=== PATIENT | female | born 1940 | race Caucasian/White ===

== ENCOUNTER → 2023-07-30 10:27 | Outpatient (REF) | payer MEDICARE, BC, SELFPAY | LOC: HWRAD 10:27 | PROVIDERS: ATTENDING PHYSICIAN Family Medicine | DX: M85.80 Other specified disorders of bone density and structure, unspecified site (principal); Z12.31 Encounter for screening mammogram for malignant neoplasm of breast; M85.89 Other specified disorders of bone density and structure, multiple sites | CPT/HCPCS: 77063; 77067; 77080 ==

== ENCOUNTER → 2023-08-06 10:32 | Outpatient (REF) | payer MEDICARE, BC, SELFPAY | LOC: WDC 10:32 | PROVIDERS: ATTENDING PHYSICIAN Family Medicine | DX: R92.8 Other abnormal and inconclusive findings on diagnostic imaging of breast (principal) | CPT/HCPCS: 76642 ==

== ENCOUNTER → 2023-09-24 09:02 | Outpatient (REF) | payer MEDICARE, BC, SELFPAY | LOC: RAD 09:02 | PROVIDERS: ATTENDING PHYSICIAN Family Medicine | DX: Z86.73 Personal history of transient ischemic attack (TIA), and cerebral infarction without residual deficits (principal); G45.8 Other transient cerebral ischemic attacks and related syndromes | CPT/HCPCS: 93880 ==

== ENCOUNTER → 2023-12-23 12:34 | Outpatient (REF) | payer MEDICARE, BC, SELFPAY ==
[2023-12-23 16:30] LABS: % Basophils 1.1 % (0-2); % Eosinophils 2.8 % (0-6); % Immature Granulocytes 0.3 % (0-0.5); % Lymphocytes 36.1 % (20.5-51.1); % Monocytes 7.4 % (1.7-9.3); % Neutrophils 52.3 % (42.2-75.2); Absolute Basophils 0.1 10^3/uL (0-0.2); Absolute Eosinophils 0.2 10^3/uL (0-0.7); Absolute Lymphocytes 2.5 10^3/uL (1.2-3.4); Absolute Monocytes 0.5 10^3/uL (0.1-0.6); Absolute Neutrophils 3.7 10^3/uL (1.4-6.5); Hematocrit 36.1 % (37.0-47.0); Hemoglobin 12.6 g/dL (12.0-16.0); Mean Corp Hgb Conc. 34.9 g/dL (33.0-37.0); Mean Corpuscular Hgb 34.1 pg (27.0-31.0); Mean Corpuscular Volume 97.6 fL (81.0-99.0); Mean Platelet Volume 10.4 fL (7.4-10.4); Nucleated Red Blood Cells % 0 %; Platelet Count 208 10^3/uL (130-400); Red Cell Dist. Width 13.2 % (11.5-14.5)
[2023-12-23 16:40] LABS: ALT (SGPT) 19 U/L (0-35); AST (SGOT) 29 U/L (14-36); Albumin 4.1 g/dl (3.5-5.0); Alkaline Phosphatase 86 U/L (38-126); Blood Urea Nitrogen 23 mg/dl (7-17); Carbon Dioxide 28 mmol/L (22-30); Chloride 104 mmol/L (98-107); Glucose 95 mg/dl (70-99); Potassium 3.9 mmol/L (3.5-5.1); Sodium 142 mmol/L (135-145); Total Bilirubin 0.6 mg/dl (0.2-1.3); Total Protein 6.7 g/dl (6.3-8.2); eGFR > 60.00
[2023-12-23 16:41] LABS: D-Dimer 1.27 ug/mlFEU (0.00-0.50)
[2023-12-23 16:44] LABS: C-Reactive Protein < 5.00 mg/L (0.0-10.00)
[2023-12-23 16:53] LABS: NT-proBNP 396 pg/ml
[2023-12-23 16:54] LABS: Erythrocyte Sed Rate 19 mm/hour (0-20)
[2023-12-23 17:15] LABS: TSH Reflex To Free T4 0.16 uIU/ml (0.47-4.68)
[2023-12-23 17:44] LABS: Free T4 1.16 ng/dl (0.78-2.19)
[2023-12-24 10:51] LABS: Free T3 3.22 pg/ml (2.77-5.27)
== END ==
LOC: HWRAD 12:34
PROVIDERS: ATTENDING PHYSICIAN Family Medicine
DX: R06.02 Shortness of breath (principal); I10 Essential (primary) hypertension
CPT/HCPCS: 36415; 71046; 80053; 83880; 84439; 84443; 84481; 85025; 85379; 85652; 86140

== ENCOUNTER 2023-12-23 21:20 | Observation (INO) | payer MEDICARE, BC, SELFPAY ==
[2023-12-23] VITALS (7 sets, daily range): BP systolic 116–183; BP diastolic 58–92; BMI 25.7; BMI 28.6
--- NOTE | 2023-12-23 18:31 | ED.GENMED ---
History of Present Illness
General
Chief Complaint: Breathing Problem
Source: patient
Exam Limitations: none
Time Seen by Provider: 12/23/23 18:17
History of Present Illness
History of Present Illness:
See MDM
Past History
Past History
ED Past Medical History: Asthma and HTN
ED Past Surgical History: Cholecystectomy and Gynecological
Social History
Living: alone
Phy Exam
Physical Exam
Physical Exam:
See MDM
Scores
Heart Failure Risk
Heart Failure Risk Score: Not Applicable
Course
Orders/Labs/Results
Orders:
Orders
12/23/23 Dinner
Regular
At Your Request: Full Participation
Does patient need a safe tray?: No
12/23/23 17:44
Electrocardiogram (*1) Urgent
Reason for Study: Shortness of Breath
EKG- Treatment ONCE
12/23/23 18:28
Complete Blood Count/With Diff Urgent
Comprehensive Metabolic Panel Urgent
PTT Urgent
Prothrombin Time Urgent
Troponin I Urgent
12/23/23 19:02
CT Chest Pe Study Urgent
Comment:
Reason For Exam: SOB and Chest pain
12/23/23 20:40
Admit/Transfer Patient As Directed
Co-Sign Provider:
Level of Care: Observation services
Assign to:: Telemetry
Physician / Group: mariann
Diagnosis: stable angina
Reason for Telemetry: Arrhythmia
Date to Stop Telemetry: 12/26/23
Time to Stop Telemetry: 11:00
PRN Pain Medication Management As Directed
May give lesser potent ordered pain med per pt: Yes
preference::
Protocol:: Medication orders for pain may be administered in a
manner that supports deferring to patient preference
when the pt is:
- Requesting an ordered lesser potent pain medication.
Least to most potent pain medications are defined
as: acetaminophen < NSAID < tramadol < opioids
(morphine, oxycodone, hydromorphone).
- Requesting a lesser dose of the same medication IF
ORDERED.
- Requesting a less intrusive route of administration
if both routes are prescribed by the provider (PO <
IV).
12/23/23 20:41
Code Status As Directed
Resuscitation Status: Do not resuscitate
Reached after discussion with pt or family/Healthcare POA: Yes
DNR Bracelet Application ONCE
12/23/23 21:42
Activity As Directed
Activity Level: As Tolerated
Vital Signs As Directed
Frequency: Per unit guidelines
DX Deep Vein Thrombosis Video Routine
12/23/23 22:00
Flush (0.9% Sodium Chloride) [Flush (Nss)] See Dose Instructions IV PER PROTOCOL
12/24/23 07:54
Complete Blood Count/With Diff IN AM
Comprehensive Metabolic Panel IN AM
12/24/23 08:00
Calcium Carbonate [Oscal Tashi 500] 500 mg PO DAILY
Celecoxib [Celebrex] 200 mg PO DAILY
Heparin 5,000 units SC Q12
Hydrochlorothiazide [Oretic] 25 mg PO DAILY
Irbesartan [Avapro] 300 mg PO DAILY
Potassium Chloride [KCl] 10 meq PO DAILY
12/25/23 08:00
Estradiol Vaginal [Estrace 0.01% Vaginal Cream] See Dose Instructions VAG TuSa@0800
12/26/23 11:00
DC Protocol for Telemetry ONCE
Abnormal Lab Results
12/23/23
18:28
RBC 3.80 L 10^6/uL
(4.20-5.40)
Hct 35.8 L %
(37.0-47.0)
MCH 33.2 H pg
(27.0-31.0)
BUN 25 H mg/dl
(7-17)
Glucose 113 H mg/dl
(70-99)
12/23/23 18:28
12/23/23 18:28
Vital Signs
Initial and Last Documented VS:
Initial Vital Signs
Temp Pulse Resp BP Pulse Ox
97.9 F 62 20 116/92 99
12/23/23 17:47 12/23/23 17:47 12/23/23 17:47 12/23/23 17:47 12/23/23 17:47
Last Documented Vital Signs
Temp Pulse Resp BP Pulse Ox
98.0 F 63 18 146/77 96
12/24/23 14:54 12/24/23 14:54 12/24/23 14:54 12/24/23 14:54 12/24/23 14:54
MDM/Problems Addressed
Differential Diagnosis Includes:
HPI and MDM Narrative:
83-year-old female presenting for evaluation of exertional dyspnea over the past several weeks. Family at bedside acknowledges that she becomes very short of breath with minimal exertion. At rest, patient states all symptoms resolved. She saw her
PCP and outpatient blood work was performed showing a normal BNP but the D-dimer is elevated. She was sent to the emergency department for evaluation of possible PE
After talking to the patient and hearing the story, her symptoms are more concerning for acute coronary syndrome. Although her D-dimer is elevated, will decide CT or not based on troponin. Outpatient chest x-ray clear
Physical exam
General: Well appearing and non-toxic
HEENT: protecting airway
Neck: appears supple
CV: No evidence of cyanosis. Regular rate and rhythm
Resp: No accessory muscle use. Lungs clear
Abd: Non-distended
Extremities: No deformities. No unilateral leg edema or tenderness
Neuro: alert
Psych: Normal affect
Skin: Intact
Problems Addressed including Acute and Chronic Conditions affecting care:
1. Exertional dyspnea
Acuity: acute
Prognosis: unstable
Details: Screening EKG negative but symptoms are concerning. Will obtain troponin
Updates
Troponin negative. CT PE was performed but is also negative. Given her history of significant exertional dyspnea with minimal exertion, will admit for further workup
Differential Diagnosis (but not limited to): Pulmonary embolism, acute coronary syndrome
Testing considered: CT PE but will obtain troponin first
Drug therapy (if applicable): OTC meds, please see d/c instruction regarding Rx drugs
Amount and/or Complexity of Data Reviewed
Clinical info obtained from: Patient
External data reviewed: Outpatient BNP and CXR normal
Labs I independently reviewed (but not limited to): [Troponin normal
Radiology: The CT scan was personally and independently reviewed. In addition, official CT report reviewed.
Pulse Ox: not hypoxic
EKG independently reviewed: Sinus rhythm, normal axis, no STEMI
Child Care Group Leader: Sinus rhythm
Critical Care: N/A
Risk of Complication:
Social Determinants of health: Good social support
Discussed with other providers: Hospitalist
Escalation of Care includes Admit/Obs: Given the significant shortness of breath with exertion, will admit for further testing
Occasional wrong word or 'sound a like' substitutions may have occurred due to the inherent limitations of voice recognition software. Read the chart carefully and recognize, using context, where substitutions have occurred.
*Critical Care Note
Total Time (30-74mins, 75-104mins- exclusive of procedures): Not Applicable
ED Attending Note
-
Portions of this chart may have been created with voice recognition software.� Occasional wrong word or��sound alike� substitutions may have occurred due to the inherent limitations of voice recognition software.
Discharge Plan
Departure
Patient Disposition: Admit
Date of Disposition: 12/23/23
Time of Disposition: 20:20
Admit to: Telemetry
Presentation/result/management discussed w/ accepting MD/DO: Hospitalist
Discharge Problem:
Exertional dyspnea
Interventions
Interventions:
*Risk Screen - Suicide Last Done: 12/23/23 17:47
*General Assessment Last Done: 12/23/23 18:30
*Neglect/Abuse Screening Last Done: 12/23/23 18:30
ED- Fall Risk Assessment Last Done: 12/23/23 18:30
*ED COVID-19 Vaccine History Last Done: 12/23/23 18:30
*Nursing Disposition Last Done: 12/23/23 21:30
ED- Cardiac Assessment Last Done: 12/23/23 18:30
ED- Pulmonary Assessment Last Done: 12/23/23 18:30
Discharge Date and Time
Discharge Date/Time: 12/23/23 21:45
[2023-12-23 18:37] LABS: % Basophils 1.4 % (0-2); % Eosinophils 3.8 % (0-6); % Immature Granulocytes 0.3 % (0-0.5); % Lymphocytes 37.4 % (20.5-51.1); % Monocytes 8.9 % (1.7-9.3); % Neutrophils 48.2 % (42.2-75.2); Absolute Basophils 0.1 10^3/uL (0-0.2); Absolute Eosinophils 0.3 10^3/uL (0-0.7); Absolute Lymphocytes 2.7 10^3/uL (1.2-3.4); Absolute Monocytes 0.6 10^3/uL (0.1-0.6); Absolute Neutrophils 3.4 10^3/uL (1.4-6.5); Hematocrit 35.8 % (37.0-47.0); Hemoglobin 12.6 g/dL (12.0-16.0); Mean Corp Hgb Conc. 35.2 g/dL (33.0-37.0); Mean Corpuscular Hgb 33.2 pg (27.0-31.0); Mean Corpuscular Volume 94.2 fL (81.0-99.0); Mean Platelet Volume 9.4 fL (7.4-10.4); Nucleated Red Blood Cells % 0 %; Platelet Count 214 10^3/uL (130-400); Red Cell Dist. Width 13.3 % (11.5-14.5); White Blood Cell Count 7.1 10^3/uL (4.8-10.8)
[2023-12-23 18:45] LABS: INR 1.02; PT 13.4 Sec (11.4-14.6)
[2023-12-23 18:46] LABS: APTT 31.3 Sec (23.4-35.0)
[2023-12-23 18:48] LABS: ALT (SGPT) 19 U/L (0-35); AST (SGOT) 29 U/L (14-36); Albumin 4.2 g/dl (3.5-5.0); Alkaline Phosphatase 83 U/L (38-126); Blood Urea Nitrogen 25 mg/dl (7-17); Calcium 9.9 mg/dl (8.4-10.2); Carbon Dioxide 26 mmol/L (22-30); Chloride 105 mmol/L (98-107); Estimated Creatinine Clearance 61 ml/min; Glucose 113 mg/dl (70-99); Potassium 3.6 mmol/L (3.5-5.1); Sodium 142 mmol/L (135-145); Total Bilirubin 0.5 mg/dl (0.2-1.3); Total Protein 6.9 g/dl (6.3-8.2); eGFR > 60.00
[2023-12-23 18:59] LABS: Troponin I < 0.012 ng/ml
--- NOTE | 2023-12-23 20:44 | HPS.HSE ---
Family Physician
-
Family Physician: Tobi Sandhu
Chief Complaint
-
shortness of breath
History of Present Illness
83-year-old female past medical history of hypertension, asymptomatic bradycardia psoriasis, recurrent UTI, hyperlipidemia presenting with shortness of breath with exertion over the past several weeks. Shortness of breath only occurs with exertion
and resolves with rest. She also feels a vague feeling in her chest that feels better when she rubs her chest while she is exerting herself. She denies any radiation of the discomfort. She denies any sweating or nausea or vomiting. She denies
any dizziness. She denies any cough or fevers or chills. She denies any lower extremity edema. She may have gained a few pounds but does not think this is water weight.
She denies smoking. She drinks alcohol up to a few times a week.
She is adopted so she does not know her family history.
Medical History
Past Medical History
Past Medical History: Reports Other (hypertension, asymptomatic bradycardia psoriasis, recurrent UTI, hyperlipidemia)
Past Surgical History: Reports None
Social History
Tobacco: Non-smoker
Alcohol: None
Drug: None
Family History
Family History: Not pertinent
Allergies / Home Medications
Allergies reflects when Allergies were last updated in [employer].
Home Medications with original date entered in [employer]
Allergy/Medication List:
Allergies
Allergy/AdvReac Type Severity Reaction Status Date / Time
hydromorphone [From Dilaudid] Allergy Nausea / Verified 12/23/23 17:47
Vomiting
meperidine [From Demerol] Allergy Nausea / Verified 12/23/23 17:47
Vomiting
theophylline Allergy Anaphylaxis Verified 12/23/23 17:47
ciprofloxacin AdvReac Mild gi symptoms Verified 12/23/23 17:47
Home Medications
calcium carbonate 600 mg PO DAILY Supplement 03/29/17
celecoxib 200 mg capsule 200 mg PO DAILY arthritis 03/29/17
hydrochlorothiazide 25 mg tablet 25 mg PO DAILY Blood pressure 03/29/17
estradiol 0.01% (0.1 mg/gram) vaginal cream 1 g vaginal TUSA Hormonal agent 07/20/22
irbesartan 300 mg tablet 300 mg PO DAILY Blood pressure 07/20/22
potassium chloride 10 mEq tablet,extended release(part/cryst) 10 meq PO DAILY Supplement 07/20/22
Review of Systems
-
History Source: Patient
A 12 point ROS was completed and negative except as noted: Yes
Constitutional: Reports No Symptoms
EENT: Reports No Symptoms
Respiratory: Reports See HPI
Cardiac: Reports No Symptoms
Abdomen/GI: Reports No Symptoms
: Reports No Symptoms
Musculoskeletal: Reports No Symptoms
Skin: Reports No Symptoms
Neurological: Reports No Symptoms
Endocrine: Reports No Symptoms
Hematologic/Lymphatic: Reports No Symptoms
Psych: Reports No Symptoms
Physical Exam
Vital Signs
Vital Signs
Temp Pulse Resp BP Pulse Ox
97.9 F 74 18 162/58 97
12/23/23 17:47 12/23/23 20:15 12/23/23 20:15 12/23/23 20:00 12/23/23 20:15
Physical Exam
General: Well Developed, Well Nourished and No Apparent Distress
HEENT: NormoCephalic, Moist mucous membranes and Atraumatic
Respiratory: Clear
Cardiac: S1/S2 and Regular Rhythm; No Murmur or Rub
GI: Soft, Non Tender, Non Distended and Normal Bowel Sounds; No Organomegaly
Rectal: Deferred by Provider
Musculoskeletal: No Clubbing, No Cyanosis and No Edema
Skin: No Rash
Neuro: Nonfocal/grossly intact
Laboratory Results
-
12/23/23 18:28
12/23/23 18:28
Laboratory Results
PT 13.4 Sec (11.4-14.6) 12/23/23 18:28
INR 1.02 12/23/23 18:28
APTT 31.3 Sec (23.4-35.0) 12/23/23 18:
Total Bilirubin 0.5 mg/dl (0.2-1.3) 12/23/23 18:
AST 29 U/L (14-36) 12/23/23 18:
ALT 19 U/L (0-35) 12/23/23 18:28
Alkaline Phosphatase 83 U/L (38-126) 12/23/23 18:
Troponin I < 0.012 ng/ml 12/23/23 18:28
Data Reviewed
-
Lab Data: Labs Reviewed by me
Old Records: Reviewed
Impression/Plan
-
IMPRESSION:
PLAN:
# Dyspnea on exertion likely secondary to stable angina
-Outpatient D-dimer elevated
-CT PE shows severe calcific atherosclerotic plaque in the coronary arteries, mild scarring/subsegmental atelectasis, without any acute pulmonary abnormalities
-Troponin negative
-EKG shows normal associated with sinus arrhythmia
-Check echo
-Cardiology consulted
Essential hypertension
-Continue irbesartan
-Continue hydrochlorothiazide
Hx of bradycardia
Psoriasis
History of recurrent UTI
Hyperlipidemia
DNR/DNI
DVT prophylaxis-heparin
Regular diet
--- NOTE | 2023-12-24 01:04 | PTCARENOTE ---
Pt received from ER [email or web address] able to make his needs known.Denies of any chest pain,denies need of oxygen.Pt oriented to room & call pace in reach.Plan of care continued.
[2023-12-24 03:42] VITALS: BP 132/70
[2023-12-24 07:00] VITALS: BP 141/92
[2023-12-24 08:23] LABS: % Basophils 1.8 % (0-2); % Eosinophils 3.7 % (0-6); % Immature Granulocytes 0.4 % (0-0.5); % Lymphocytes 34.8 % (20.5-51.1); % Monocytes 7.6 % (1.7-9.3); % Neutrophils 51.7 % (42.2-75.2); Absolute Basophils 0.1 10^3/uL (0-0.2); Absolute Eosinophils 0.2 10^3/uL (0-0.7); Absolute Monocytes 0.4 10^3/uL (0.1-0.6); Absolute Neutrophils 2.9 10^3/uL (1.4-6.5); Hematocrit 36.3 % (37.0-47.0); Hemoglobin 12.5 g/dL (12.0-16.0); Mean Corp Hgb Conc. 34.4 g/dL (33.0-37.0); Mean Corpuscular Hgb 32.6 pg (27.0-31.0); Mean Corpuscular Volume 94.5 fL (81.0-99.0); Mean Platelet Volume 9.7 fL (7.4-10.4); Nucleated Red Blood Cells % 0 %; Platelet Count 210 10^3/uL (130-400); Red Blood Cell Count 3.84 10^6/uL (4.20-5.40); Red Cell Dist. Width 13.3 % (11.5-14.5); White Blood Cell Count 5.7 10^3/uL (4.8-10.8)
--- NOTE | 2023-12-24 08:31 | CON.CAR ---
Consultation
Consultation Request
Date/Time Consultation Requested: 12/24/23, 7am
Date/Time Consultation Performed: 12/24/23, 730am
Requesting Provider: Anderson
Performing Provider: Aakash
Reason for Consultation: FOSS
Medical History
-
Chief Complaint: FOSS
History of Present Illness:
83 yo female with PMH of HTN, asthma was recently evaluated by PCP for FOSS. Labs were sent as outpatient, and then she was sent to ED due to elevated D dimer for evaluation for PE.
Patient reports 6 weeks of progressive FOSS. There is no chest pain, or edema. There is no orthopnea. No dizziness, syncope. Occasional palps.
Past Medical History
Past Medical History: Asthma and HTN
Past Surgical History: Cholecystectomy (2002) and Gynecological (hysterectomy 1984)
Social History
Tobacco: Non-Smoker
Family History
Family History: Adopted
Allergies / Home Medications
Allergy/AdvReac Type Severity Reaction Status Date / Time
ciprofloxacin Allergy gi symptoms Verified 12/23/23 21:43
hydromorphone [From Dilaudid] Allergy Nausea / Verified 12/23/23 17:47
Vomiting
meperidine [From Demerol] Allergy Nausea / Verified 12/23/23 17:47
Vomiting
theophylline Allergy Anaphylaxis Verified 12/23/23 17:47
�Medication �Instructions �Recorded �Confirmed �Type
calcium carbonate 600 mg PO DAILY Supplement 03/29/17 12/23/23 History
celecoxib 200 mg capsule 200 mg PO DAILY arthritis 03/29/17 12/23/23 History
hydrochlorothiazide 25 mg tablet 25 mg PO DAILY Blood pressure 03/29/17 12/23/23 History
estradiol 0.01% (0.1 mg/gram) 1 g vaginal TUSA Hormonal agent 07/20/22 12/23/23 History
vaginal cream
irbesartan 300 mg tablet 300 mg PO DAILY Blood pressure 07/20/22 12/23/23 History
potassium chloride 10 mEq 10 meq PO DAILY Supplement 07/20/22 12/23/23 History
tablet,extended release(part/cryst)
Review of Systems
-
History Source: Patient
All other systems: Negative unless noted
Respiratory: Trouble Breathing
Cardiac: Palpitations
Physical Exam
Vital Signs
Temp Pulse Resp BP Pulse Ox
98.4 F 81 18 141/92 96
12/24/23 07:00 12/24/23 07:00 12/24/23 07:00 12/24/23 07:00 12/24/23 07:00
Lab Results
12/24/23 07:54
Troponin I < 0.012 ng/ml 12/23/23 18:28
Physical Exam
General: Well Developed and Well Nourished
HEENT: Normocephalic and Anicteric
Respiratory: Non Labored Respirations and Other (mild expiratory wheeze)
Cardiac: S1/S2 (normal), Regular Rhythm, Murmur (none), Peripheral Edema (none) and JVD (none)
Musculoskeletal: No Clubbing, No Cyanosis and No Edema
Skin: Warm and Dry
Neuro: AO x 3
Impression / Plan
-
83 yo female with PMH of HTN, asthma was recently evaluated by PCP for 6 weeks of FOSS. Labs were sent as outpatient, and then she was sent to ED due to elevated D dimer for evaluation for PE. CT was negative for PE.
# FOSS
-sxs and exam do not seem consistent with acute HF
-EKG with no acute changes; TnI <0.012
-could be anginal equivalent, especially with CAC noted on CT scan (see below)
-echo today
-we discussed topic of inpatient vs outpatient nuclear stress test (she already ate breakfast today)
-if echo is normal, she would like to return for outpatient exercise nuclear stress, which is reasonable given subacute presentation
-hospitalist to eval for non-cardiac etiology
# Severe coronary artery calcification on CT
-start ASA 81mg and crestor 10mg daily
-lipids were mildly elevated on outpatient panel (LDL 110)
# HTN
-chronic, stable
-cont HCTZ 25mg daily and irbesartan 300mg daily
# Brief paroxysmal SVT
-on tele
-monitor
Data Reviewed
-
EKG: Tracing Personally Visualized and interpreted (SR, sinus arrhythmia)
Radiology: Report Reviewed by me (CXR: NAD)
CT Scan: Report Reviewed by me (CT PE: no PE, severe coronary calcification noted)
Labs: Labs Reviewed by me
[2023-12-24] MEDS: CELEBREX 200 MG PO (08:58)
[2023-12-24] MEDS: ORETIC 25 MG PO (08:58)
[2023-12-24] MEDS: OSCAL CAL 500 500 MG PO (08:58)
[2023-12-24] MEDS: LOW STRENGTH ASPIRIN 81 MG PO (08:58)
[2023-12-24] MEDS: KCL 10 MEQ PO (08:58)
[2023-12-24 08:59] LABS: ALT (SGPT) 20 U/L (0-35); AST (SGOT) 28 U/L (14-36); Alkaline Phosphatase 81 U/L (38-126); Blood Urea Nitrogen 19 mg/dl (7-17); Calcium 9.7 mg/dl (8.4-10.2); Carbon Dioxide 23 mmol/L (22-30); Chloride 105 mmol/L (98-107); Estimated Creatinine Clearance 58 ml/min; Glucose 116 mg/dl (70-99); Potassium 3.9 mmol/L (3.5-5.1); Sodium 142 mmol/L (135-145); Total Bilirubin 0.9 mg/dl (0.2-1.3); Total Protein 6.6 g/dl (6.3-8.2); eGFR > 60.00
--- NOTE | 2023-12-24 09:57 | W.PN.HOSP.TC ---
Today's Communication/Plan
-
Discharge planning today.
Assessment / Plan
Assessment / Plan
Physical exam:
General: Well Developed, Well Nourished and No Apparent Distress
HEENT: Normocephalic, Atraumatic and Moist Mucous Membranes
Respiratory: Clear to Auscultation; Negative Wheezes, Rales or Rhonchi
Cardiac: Regular Rhythm and S1/S2
GI: Soft, Nontender and Nondistended
Musculoskeletal: No Clubbing, No Cyanosis and No Edema
Neuro: Awake, Alert and Oriented
Psych: Calm
A/P:
# Dyspnea on exertion concerns for secondary to stable angina
CTA negative for PE
Normal troponin
Echocardiogram unremarkable
Cardiology consult appreciated
Discussed with cardiology today and since echo and planning to do stress test as outpatient.
Cardiology cleared her for discharge
Started on aspirin and statins
Essential hypertension
-Continue irbesartan
-Continue hydrochlorothiazide
Hx of bradycardia
Psoriasis
History of recurrent UTI
Hyperlipidemia
DNR/DNI
DVT prophylaxis-heparin
Anticipated Discharge: Today
Subjective/Interval History
-
Date of Service: December 24, 2023
Patient denies chest pain or shortness of breath.
Objective Data
-
Labs:
Laboratory Results
12/24/23
07:54
WBC 5.7
Hgb 12.5
Hct 36.3 L
Plt Count 210
Sodium 142
Potassium 3.9
Chloride 105
Carbon Dioxide 23
BUN 19 H
Creatinine 0.7
Glucose 116 H
Calcium 9.7
Total Bilirubin 0.9
AST 28
ALT 20
Alkaline Phosphatase 81
Vital Signs:
Vital Signs
Temp Pulse Resp BP Pulse Ox
98.4 F 82 18 141/92 96
12/24/23 07:00 12/24/23 08:58 12/24/23 07:00 12/24/23 08:58 12/24/23 07:00
I&O
12/23/23 12/24/23 12/25/23
06:59 06:59 06:59
Intake Total 480 / 480
Balance 480 / 480
[2023-12-24 12:05] VITALS: BP 155/68
[2023-12-24] MEDS: AVAPRO 300 MG PO (12:08)
--- NOTE | 2023-12-24 13:23 | CM ---
Reviewed the chart notes and spoke with the patient at the bedside. The patient is admitted under observational status. The [facility]ARTE letter was provided and explained. The patient had no questions with regards to the letter.
The patient resides alone in a independent condo with elevator access. The patient has a rolling walker, shower chair, and shower rails in the home. The patient has been to [facility] and [facility]. The patient has had [facility]
and [facility] in the past. The patient confirmed her pharmacy of choice is the [facility]. The patient drove self to the hospital and may or may not drive self home. Patient has family in area if she wants them to drive her home.
CM continues to be available to patient/family and is monitoring medical plan for needs at discharge.
Plan: Discharge to home when medically stable. No anticipated needs identified at this time.
--- NOTE | 2023-12-24 14:11 | W.DCSUMMARY ---
Discharge Summary
Discharge Data
Date of Admission: 12/23/23
Date of Discharge: 12/24/23
-
Pending Results: No
Hospital Course
Patient 83 years old female history of hypertension, asthma, presented to the hospital with dyspnea on exertion. Cardiology consulted. Troponin was normal. Patient underwent echocardiogram and unremarkable. Cardiology discussed with patient and
recommended outpatient stress test. Patient lung exam unremarkable and no signs of bronchospasm. Patient feels comfortable with cardiology plan. Cardiology cleared her for discharge today. Otherwise she is hemodynamically stable pulse ox normal
and she is eager to go home today. She will be discharged in stable condition today.
Discharge Plan
-
Patient Disposition: Home (Routine Discharge)
Discharge Diagnosis/Procedures: Shortness of breath. Hypertension. Paroxysmal supraventricular tachycardia
Diet: Low Cholesterol
Activity: As tolerated
Blood Work: Please PCP to order CBC, BMP within 1 week
Referrals:
Emmanuel Finn MD [Active] - in one to two weeks
Tobi Sandhu DO [Family Provider] - in less than 1 week
Prescriptions:
New
aspirin 81 mg Tablet,Chewable
81 mg PO DAILY Qty: 30 0RF
rosuvastatin 20 mg Tablet
20 mg PO QPM 30 Days Qty: 30 0RF
Continued
celecoxib 200 MG capsule
200 mg PO DAILY
hydrochlorothiazide 25 MG tablet
25 mg PO DAILY
calcium carbonate 600 MG tablet
600 mg PO DAILY
Patient Comments:
No meds Tuesdays
estradiol 0.01 % (0.1 mg/gram) cream
1 g vaginal TUSA
irbesartan 300 MG tablet
300 mg PO DAILY
potassium chloride 10 MEQ tablet,ER particles/crystals
10 meq PO DAILY
Discharge Orders:
Discharge Patient (As Directed); Ordered 12/24/23
Ordered By: Chi Armstrong
Discharge Date and Time
Discharge Date/Time: 12/24/23 17:32
Print Language: MOROCC[place]
[2023-12-24 14:54] VITALS: BP 146/77
== END 2023-12-24 17:32 | disposition home or self-care (01) ==
LOC: 4 EAST ACU 21:20
PROVIDERS: ADMITTING PHYSICIAN Hospitalist; ATTENDING PHYSICIAN Hospitalist; EMERGENCY PHYSICIAN Student in an Organized Health Care Education/Training Program; FAMILY PHYSICIAN Family Medicine; OTHER PHYSICIAN Internal Medicine
DX: R06.02 Shortness of breath (principal); I10 Essential (primary) hypertension; J45.909 Unspecified asthma, uncomplicated; I25.118 Atherosclerotic heart disease of native coronary artery with other forms of angina pectoris; E78.5 Hyperlipidemia, unspecified; R79.89 Other specified abnormal findings of blood chemistry; L40.9 Psoriasis, unspecified; I47.19 Other supraventricular tachycardia; I49.8 Other specified cardiac arrhythmias; I70.0 Atherosclerosis of aorta; I47.10 Supraventricular tachycardia, unspecified; K44.9 Diaphragmatic hernia without obstruction or gangrene; J98.11 Atelectasis; M19.012 Primary osteoarthritis, left shoulder; M51.34 Other intervertebral disc degeneration, thoracic region; S22.089A Unspecified fracture of T11-T12 vertebra, initial encounter for closed fracture; X58.XXXA Exposure to other specified factors, initial encounter; Y93.9 Activity, unspecified; Y92.9 Unspecified place or not applicable; Z66 Do not resuscitate; Z90.49 Acquired absence of other specified parts of digestive tract; Z87.440 Personal history of urinary (tract) infections; Z88.5 Allergy status to narcotic agent; Z88.1 Allergy status to other antibiotic agents; Z79.1 Long term (current) use of non-steroidal anti-inflammatories (NSAID)
CPT/HCPCS: 71275; 80053; 84484; 85025; 85610; 85730; 93005; 93306; 99285; G0378; Q9967

== ENCOUNTER → 2023-12-31 09:40 | Outpatient (REF) | payer MEDICARE, BC, SELFPAY | LOC: RCS 09:40 | PROVIDERS: ATTENDING PHYSICIAN Internal Medicine; FAMILY PHYSICIAN Family Medicine | DX: I10 Essential (primary) hypertension (principal); R00.1 Bradycardia, unspecified; R06.02 Shortness of breath | CPT/HCPCS: 93017 ==

== ENCOUNTER → 2024-01-11 09:05 | Outpatient (REF) | payer MEDICARE, BC, SELFPAY ==
[2024-01-11 13:31] LABS: HDL Cholesterol 76 mg/dl; LDL Cholesterol, Calculated 46 mg/dl; Total Cholesterol 138 mg/dl (50-199); Triglyceride 82 mg/dl (10-149); Very Low Density Lipoprotein 16 mg/dl (0-30)
== END ==
LOC: HWLAB 09:05
PROVIDERS: ATTENDING PHYSICIAN Nurse Practitioner Gerontology; FAMILY PHYSICIAN Family Medicine
DX: R93.1 Abnormal findings on diagnostic imaging of heart and coronary circulation (principal); I10 Essential (primary) hypertension
CPT/HCPCS: 36415; 80061

== ENCOUNTER → 2024-01-18 15:13 | Outpatient (REF) | payer MEDICARE, BC, SELFPAY | LOC: WDC 15:13 | PROVIDERS: ATTENDING PHYSICIAN Family Medicine | DX: R92.8 Other abnormal and inconclusive findings on diagnostic imaging of breast (principal) | CPT/HCPCS: 77061; 77065 ==

== ENCOUNTER → 2024-03-30 08:36 | Outpatient (REF) | payer MEDICARE, BC, SELFPAY ==
[2024-03-30 13:48] LABS: ALT (SGPT) 19 U/L (0-35); AST (SGOT) 32 U/L (14-36); Albumin 4.1 g/dl (3.5-5.0); Alkaline Phosphatase 69 U/L (38-126); Blood Urea Nitrogen 18 mg/dl (7-17); Calcium 9.5 mg/dl (8.4-10.2); Carbon Dioxide 30 mmol/L (22-30); Chloride 103 mmol/L (98-107); Glucose 107 mg/dl (70-99); HDL Cholesterol 78 mg/dl; LDL Cholesterol, Calculated 49 mg/dl; Sodium 138 mmol/L (135-145); Total Bilirubin 0.8 mg/dl (0.2-1.3); Total Cholesterol 150 mg/dl (50-199); Total Protein 6.5 g/dl (6.3-8.2); Triglyceride 115 mg/dl (10-149); Very Low Density Lipoprotein 23 mg/dl (0-30); eGFR > 60.00
[2024-03-30 14:01] LABS: TSH Reflex To Free T4 3.41 uIU/ml (0.47-4.68)
== END ==
LOC: HWLAB 08:36
PROVIDERS: ATTENDING PHYSICIAN Family Medicine
DX: E78.00 Pure hypercholesterolemia, unspecified (principal); R94.6 Abnormal results of thyroid function studies
CPT/HCPCS: 36415; 80053; 80061; 84443

== ENCOUNTER → 2024-10-02 13:33 | Outpatient (REF) | payer MEDICARE, BC, SELFPAY | LOC: WDC 13:33 | PROVIDERS: ATTENDING PHYSICIAN Family Medicine | DX: Z12.31 Encounter for screening mammogram for malignant neoplasm of breast (principal) | CPT/HCPCS: 77063; 77067 ==

== ENCOUNTER → 2024-12-04 10:19 | Outpatient (REF) | payer MEDICARE, BC, SELFPAY | LOC: HWRAD 10:19 | PROVIDERS: ATTENDING PHYSICIAN Family Medicine | DX: I61.9 Nontraumatic intracerebral hemorrhage, unspecified (principal) | CPT/HCPCS: 70450 ==

== ENCOUNTER → 2025-01-31 06:50 | Outpatient (REF) | payer MEDICARE, BC, SELFPAY ==
[2025-01-31] MEDS: DOBUTREX 50 MG IV (08:30)
[2025-01-31] MEDS: DOBUTREX 50 ML IV (08:30)
== END ==
LOC: RCS 06:50
PROVIDERS: ATTENDING PHYSICIAN Internal Medicine; FAMILY PHYSICIAN Family Medicine
DX: R55 Syncope and collapse (principal); I25.10 Atherosclerotic heart disease of native coronary artery without angina pectoris; I10 Essential (primary) hypertension; I47.10 Supraventricular tachycardia, unspecified
CPT/HCPCS: 78452; 93017; A9500

== ENCOUNTER → 2025-03-16 12:50 | Outpatient (REF) | payer MEDICARE, BC, SELFPAY | LOC: HWRCS 12:50 | PROVIDERS: ATTENDING PHYSICIAN Internal Medicine; FAMILY PHYSICIAN Family Medicine | DX: R55 Syncope and collapse (principal); I25.10 Atherosclerotic heart disease of native coronary artery without angina pectoris; I10 Essential (primary) hypertension; I47.10 Supraventricular tachycardia, unspecified | CPT/HCPCS: 93306 ==